=== PATIENT | male | born 1995 ===

== ENCOUNTER 2021-04-18 19:48 | Emergency (ER) | payer OTHER ==
[~2021-04-18] VITALS: Ht 175.3 cm; Wt 79.8 kg
[2021-04-19] MEDS ORDERED: DICLOFENAC SODI75 MG PO (00:12)
[2021-04-19] MEDS ORDERED: DUI500 PO (00:12)
== END 2021-04-19 00:36 | disposition home or self-care (01) ==
LOC: ER 19:48
DX: R59.1 Generalized enlarged lymph nodes (principal); Z03.818 Encounter for observation for suspected exposure to other biological agents ruled out
CPT/HCPCS: 70491; 71260; Q9965